=== PATIENT | male | born 1965 | race Caucasian/White ===

== ENCOUNTER 2025-07-27 09:17 | Outpatient (CLI) | payer BC ==
[2025-07-27 10:33] LABS: Estimated GFR - POC 40.0
== END 2025-07-27 09:18 | disposition home or self-care (01) ==
LOC: CSHMRI 09:17
PROVIDERS: ATTEND Internal Medicine Gastroenterology
DX: E88.01 Alpha-1-antitrypsin deficiency (principal); K74.60 Unspecified cirrhosis of liver; E83.19 Other disorders of iron metabolism
CPT/HCPCS: 36415; 74183; 82565